=== PATIENT | female | born 1960 | race Caucasian/White ===

== ENCOUNTER 2018-08-08 11:56 | Outpatient (CLI) | payer BC | END 2018-08-08 11:57 | disposition home or self-care (01) | LOC: BICMAMMO 11:56 | DX: Z12.31 Encounter for screening mammogram for malignant neoplasm of breast (principal) | CPT/HCPCS: 77063; 77067 ==

== ENCOUNTER 2019-01-10 09:11 | Outpatient (CLI) | payer BC ==
--- NOTE | 2019-01-10 09:36 | RAD ---
EXAM: Chest PA and lateral: HISTORY: Bronchitis COMPARISON: None FINDINGS: Lung drew are clear. Vascular markings are normal. Heart and mediastinum appear unremarkable. Vascularity is normal. Osseous structures are unremarkable. IMPRESSION: Unremarkable chest
== END 2019-01-10 09:12 | disposition home or self-care (01) ==
LOC: BICRAD 09:11
PROVIDERS: ATTEND Family Medicine
DX: J40 Bronchitis, not specified as acute or chronic (principal)
CPT/HCPCS: 71046

== ENCOUNTER 2019-08-10 10:29 | Outpatient (CLI) | payer BC ==
--- NOTE | 2019-08-10 11:49 | MMO ---
Bilateral MAMMO Bilat Screen [facility]. CLINICAL HISTORY: Patient is 58 years old and is seen for screening. The patient has no family history of breast cancer. The patient has no personal history of cancer. VIEWS: The views performed were: bilateral craniocaudal with tomosynthesis and bilateral mediolateral oblique with tomosynthesis. FILMS COMPARED: The present examination has been compared to prior imaging studies performed at [facility] on 08/05/2017 and 08/08/2018, and at [facility] on 02/16/2013 and 01/31/2015. This study has been interpreted with the assistance of computer-aided detection. MAMMOGRAM FINDINGS: There are scattered fibroglandular densities. There are no suspicious masses, suspicious calcifications, or new areas of architectural distortion. IMPRESSION: THERE IS NO MAMMOGRAPHIC EVIDENCE OF MALIGNANCY. A ROUTINE FOLLOW-UP MAMMOGRAM IN 1 YEAR IS RECOMMENDED. THE RESULTS OF THIS EXAM WERE SENT TO THE PATIENT. ACR BI-RADS Category 1 - Negative MAMMOGRAPHY NOTE: 1. A negative mammogram report should not delay a biopsy if a dominant of clinically suspicious mass is present. 2. Approximately 10% to 15% of breast cancers are not detected by mammography. 3. Adenosis and dense breasts may obscure an underlying neoplasm. Reported by: ROBERT HUSSEIN MD Electonically Signed: [id number]
--- NOTE | 2019-08-10 13:41 | BD ---
BONE DENSITOMETRY USING DEXA: Date: 08/10/19 HISTORY: Postmenopausal screening for osteoporosis. FINDINGS: Lumbar Spine: BMD (g/cm2) L1 0.814 T-Score: -1.6 Z-Score: -0.4 L2 0.915 T-Score: -1.0 Z-Score: 0.3 L3 0.943 T-Score: -1.3 Z-Score: 0.1 L4 1.027 T-Score: -0.3 Z-Score: 1.2 L1-L4 0.930 T-Score: -1.1 Z-Score: 0.3 Femoral Neck: 0.624 T-Score: -2.0 Z-Score: -0.8 Total Femur: 0.836 T-Score: -0.9 Z-Score: 0.1 The 10 year fracture risk for a major osteoporotic fracture is 9.3% and for a hip fracture is 1.1%. IMPRESSION: Osteopenia. POS: OFF
== END 2019-08-10 10:30 | disposition home or self-care (01) ==
LOC: BICMAMMO 10:29
DX: Z12.31 Encounter for screening mammogram for malignant neoplasm of breast (principal); Z13.820 Encounter for screening for osteoporosis; M85.89 Other specified disorders of bone density and structure, multiple sites
CPT/HCPCS: 77063; 77067; 77080

== ENCOUNTER 2021-08-18 10:46 | Outpatient (CLI) | payer BC | END 2021-08-18 10:47 | disposition home or self-care (01) | LOC: NM 10:46 | PROVIDERS: ATTEND Nurse Practitioner Obstetrics & Gynecology | DX: R10.11 Right upper quadrant pain (principal); K75.81 Nonalcoholic steatohepatitis (NASH) | CPT/HCPCS: 78227; A9537 ==

== ENCOUNTER 2022-10-01 08:26 | Outpatient (CLI) | payer BC | END 2022-10-01 08:27 | disposition home or self-care (01) | LOC: BICMAMMO 08:26 | PROVIDERS: ATTEND Nurse Practitioner Obstetrics & Gynecology | DX: Z13.820 Encounter for screening for osteoporosis (principal); M85.89 Other specified disorders of bone density and structure, multiple sites | CPT/HCPCS: 77080 ==

== ENCOUNTER 2023-11-10 12:32 | Outpatient (CLI) | payer BC | END 2023-11-10 12:33 | disposition home or self-care (01) | LOC: BICMAMMO 12:32 | PROVIDERS: ATTEND Nurse Practitioner Obstetrics & Gynecology | DX: Z12.31 Encounter for screening mammogram for malignant neoplasm of breast (principal) | CPT/HCPCS: 77063; 77067 ==

== ENCOUNTER 2023-11-22 11:38 | Outpatient (CLI) | payer BC | END 2023-11-22 11:39 | disposition home or self-care (01) | LOC: BICRAD 11:38 | PROVIDERS: ATTEND Internal Medicine Rheumatology | DX: M06.4 Inflammatory polyarthropathy (principal) ==

== ENCOUNTER 2024-11-17 08:58 | Outpatient (CLI) | payer BC | END 2024-11-17 08:59 | disposition home or self-care (01) | LOC: BICMAMMO 08:58 | PROVIDERS: ATTEND Nurse Practitioner Obstetrics & Gynecology | DX: Z12.31 Encounter for screening mammogram for malignant neoplasm of breast (principal); Z13.820 Encounter for screening for osteoporosis; M85.89 Other specified disorders of bone density and structure, multiple sites | CPT/HCPCS: 77063; 77067; 77080 ==